=== PATIENT | male | born 1980 | race Caucasian/White ===

== ENCOUNTER 2017-12-22 19:51 | Emergency (ER) | payer OTHER ==
[~2017-12-22] VITALS: Ht 180.3 cm; Wt 74.8 kg
== END 2017-12-22 20:50 | disposition home or self-care (01) ==
LOC: ED 19:51
DX: S01.112A Laceration without foreign body of left eyelid and periocular area, initial encounter (principal); W21.05XA Struck by basketball, initial encounter; Y93.67 Activity, basketball; Y92.89 Other specified places as the place of occurrence of the external cause; Y99.8 Other external cause status